=== PATIENT | male | born 1985 | race Caucasian/White ===

== ENCOUNTER 2021-12-03 14:27 | Emergency (ER) | payer OTHER, SELFPAY ==
--- NOTE | ~2021-12-03 | XR_ITS ---
EXAMINATION: LEFT ANKLE AND LEFT FOOT X-RAY CLINICAL INFORMATION: Injury COMPARISON: None TECHNIQUE: 3 views of the left ankle and 3 views of the left foot FINDINGS: Left foot: Bone alignment is normal. No fracture or dislocation is seen. Joint spaces are normal. Soft tissues are normal. Left ankle: Bone alignment is normal. No fracture or dislocation is seen. The ankle mortise is normal. There is lateral soft tissue swelling. XR/XR foot LT min 3V IMPRESSION: Lateral soft tissue swelling. No fracture or dislocation seen.
--- NOTE | ~2021-12-03 | XR_ITS ---
EXAMINATION: LEFT ANKLE AND LEFT FOOT X-RAY CLINICAL INFORMATION: Injury COMPARISON: None TECHNIQUE: 3 views of the left ankle and 3 views of the left foot FINDINGS: Left foot: Bone alignment is normal. No fracture or dislocation is seen. Joint spaces are normal. Soft tissues are normal. Left ankle: Bone alignment is normal. No fracture or dislocation is seen. The ankle mortise is normal. There is lateral soft tissue swelling. XR/XR ankle LT min 3V IMPRESSION: Lateral soft tissue swelling. No fracture or dislocation seen.
[2021-12-03 15:05] VITALS: BP 138/95; PULSE 98; RESP 18; TEMP 37; O2SAT 99; BMI 25.0
--- NOTE | 2021-12-03 16:15 | PC.NURSE ---
ICE PACK APPLIED OVER LEFT ANKLE/FOOT. LEFT ANKLE DEFORMITY AND SWELLING NOTED. + PALPABLE PEDAL PULSES.
--- NOTE | 2021-12-03 16:59 | ED.FALL ---
HPI - Fall General Chief Complaint: Fall Stated Complaint: l ankle inj work related Time Seen by Provider: 12/03/21 16:56 History of Present Illness HPI Narrative: Patient complains of left ankle pain and swelling after a fall at work where he tripped getting out of a machine and twisted his left ankle, no other injury no other complaints Related Data Previous Rx's Medication Instructions Recorded acetaminophen 500 mg tablet 1,000 mg PO QID PRN #30 tab 12/03/21 ibuprofen 600 mg tablet 600 mg PO Q6H PRN #20 tab 12/03/21 Allergies Allergy/AdvReac Type Severity Reaction Status Date / Time No Known Allergies Allergy Verified 12/03/21 15:05 Review of Systems Review of Systems: Positive for left ankle pain and swelling Negatives are no headache no head injury no loss of consciousness no dizziness or weakness no fainting or feeling faint no neck pain no back pain no chest pain no shortness of breath no abdominal pain no other extremity pains no numbness weakness or tingling Yes all other systems are reviewed and are negative [facility] Past Medical History Source: nursing notes reviewed Social History Social History Advance Directives: No Advance Directives Information Provided: No Physical Exam Vital Signs: Vital Signs: Last Vital Signs Temp 98.6 F 12/03/21 15:05 Pulse 98 12/03/21 15:05 Resp 18 12/03/21 15:05 BP 138/95 H 12/03/21 15:05 Pulse Ox 99 12/03/21 15:05 BMI result Body Mass Index 25.0 General appearance no acute distress Head is normocephalic atraumatic Neck is supple nontender Chest wall is nontender The extremities the left ankle is tender and swollen, skin is intact, it is tender and swollen both medial and lateral malleolus Other extremities normal Neuro no focal motor or sensory deficit Course Course Course Narrative: X-ray left ankle was normal, patient was given an Aircast and will follow with [facility] for work related injury as needed Discharge Plan Discharge Clinical Impression: Left ankle sprain Patient Disposition: Home, Self-Care Additional Instructions: Ice, elevation Motrin and/or Tylenol as needed Activity as tolerated is okay Follow with [facility] Return any concerns Prescriptions: New acetaminophen 500 mg tablet 1,000 mg PO QID PRN (Reason: pain) Qty: 30 0RF ibuprofen 600 mg tablet 600 mg PO Q6H PRN (Reason: pain) Qty: 20 0RF Referrals: [facility] [Provider Group] - 2 days (Left ankle sprain at work) Stand Alone Forms: Work/School Release Interventions: ED Discharge Assessment Last Done: 12/03/21 17:26 Discharge Date/Time: 12/03/21 17:27
== END 2021-12-03 17:27 | disposition home or self-care (01) ==
PROVIDERS: Emergency Provider Emergency Medicine; PCP Nurse Practitioner Family
DX: S93.402A Sprain of unspecified ligament of left ankle, initial encounter (principal); W17.89XA Other fall from one level to another, initial encounter; Y93.89 Activity, other specified; Y92.9 Unspecified place or not applicable; Y99.0 Civilian activity done for income or pay
CPT/HCPCS: 73610; 73630; 99283